=== PATIENT | female | born 1970 | race Caucasian/White ===

== ENCOUNTER 2018-03-13 08:55 | Emergency (ER) | payer OTHER ==
--- NOTE | 2018-03-13 09:35 | EDPHY ---
General Time Seen by Provider: 03/13/18 09:33 Narrative: CHIEF COMPLAINT: Swelling and leg, sent here to rule out blood clot HISTORY OF PRESENT ILLNESS: Patient presents with complaints of left leg swelling and possible DVT. She reports an injury 1 month ago work. She is since been doing physical therapy. Today physical therapy, the therapist was concerned as she has had some swelling since last night. This involves the left leg from below the knee. There is some mild pain in the area from the knee down as well. There is also mild pain in the left inguinal fold. She was also briefly evaluated by the worker's compensation physician, who was concern for possible DVT. They sent her here for this. She has no chest pain. She does have mild shortness of breath. No fever chills. No redness or warmth. No recent travel or trauma. No previous incidence of venous thrombolic event, peripheral edema, peripheral vascular disease. She does have mild aortic regurgitation. No other associated complaints or modifying factors. REVIEW OF SYSTEMS: Ten systems reviewed and are negative unless otherwise noted in the HPI PCP: Dr. Worrell SPECIALISTS: Currently worker's compensation PAST MEDICAL HISTORY: Aortic regurgitation, fibromyalgia, rheumatoid arthritis PAST SURGICAL HISTORY: No recent surgical history SOCIAL HISTORY: Daily smoker. No drug or alcohol use. Lives independently. Works for [employer] FAMILY HISTORY: Noncontributory EXAMINATION General Appearance: Alert, no distress Head: normocephalic, atraumatic Eyes: Pupils equal and round, no conjunctival pallor or injection ENT, Mouth: Mucous membranes moist Neck: Normal inspection, supple, non-tender Respiratory: Lungs are clear to auscultation Cardiovascular: Regular rate and rhythm Gastrointestinal: Abdomen is soft and nontender Back: non-tender, no bony abnormalities Neurological: A&O, nonfocal, normal gait Skin: Warm and dry, no rash Extremities: Nontender, symmetric lower extremity nonpitting pedal edema. Good signs of perfusion without any evidence of DVT by examination. Range of motion is symmetric in the upper lower extremities. Psychiatric: Mood and affect normal DIFFERENTIAL DIAGNOSES: Including but not limited to peripheral vascular disease, DVT, peripheral edema , hypoalbuminemia, congestive heart failure, dependent edema MDM: 9:30 a.m. Reports of lower extremity edema and pain over the past 24 hr. I do not appreciate any significant edema. There is no pitting edema of any kind. There is no evidence of DVT by my examination, but the patient was sent here to rule this out by her physician. Thus I have ordered the ultrasound. I have also ordered laboratory studies and chest x-ray given mild shortness of breath. She has no chest pain. Vital signs are within normal limits. There is good signs of perfusion and no evidence of venous stasis. 10:24 a.m. Notified by radiologist Dr. Tenzin Vazquez. Extremity ultrasound is negative for DVT. 10:30 a.m. BNP is negative. Chest x-ray is unremarkable with no signs of failure or cardiomegaly. Patient is reassured by the negative DVT study. We discuss consideration of compression stockings and further care with her worker's compensation Clinic for the edema. We also discussed follow-up with primary care physician. We discussed ED precautions for any chest pain, worsening shortness of breath, fever, redness or warmth. She is comfortable this plan and discharged home stable condition, fully ambulatory. SUPERVISION: This patient was independently evaluated without direct involvement of or examination by the attending physician. - Diagnostics Imaging Results: Imaging Impressions Extremity Venous Study 03/13/18 09:32 Impression: No deep venous thrombosis left leg. Findings and recommendations discussed with Emergency Department physician, Severo Ng at 10:24 hour, 03/13/2018. Final report concurs with initial preliminary interpretation. Chest X-Ray 03/13/18 09:33 Impression: Airways disease. No edema or failure. - History Smoking Status: Former smoker - Objective Vital Signs: Initial Vital Signs Temperature (C) 98.6 F 03/13/18 09:07 Heart Rate 72 03/13/18 09:07 Respiratory Rate 16 03/13/18 09:07 Blood Pressure 142/57 H 03/13/18 09:07 O2 Sat (%) 95 03/13/18 09:07 O2 Delivery Mode Room Air Allergies/Adverse Reactions: Penicillins Allergy (Verified 03/13/18 09:06) Home Medications: Medication Instructions Recorded Ibuprofen Unk 03/12/13 Tramadol Unk 03/12/13 Vicodin 5-300 mg Tablet 03/13/18 Laboratory Results: Laboratory Results 03/13/18 09:35 03/13/18 09:35 03/13/18 03/13/18 09:35 09:35 WBC 5.11 10^3/uL 10^3/uL (3.80-9.50) RBC 4.90 10^6/uL 10^6/uL (4.18-5.33) Hgb 14.6 g/dL g/dL (12.6-16.3) Hct 44.6 % % (38.0-47.0) MCV 91.0 fL fL (81.5-99.8) MCH 29.8 pg pg (27.9-34.1) MCHC 32.7 g/dL g/dL (32.4-36.7) RDW 13.6 % % (11.5-15.2) Plt Count 249 10^3/uL 10^3/uL (150-400) MPV 10.1 fL fL (8.7-11.7) Neut % (Auto) 44.4 % % (39.3-74.2) Lymph % (Auto) 41.5 % % (15.0-45.0) [place] % (Auto) 8.2 % % (4.5-13.0) Eos % (Auto) 4.7 % % (0.6-7.6) Baso % (Auto) 0.8 % % (0.3-1.7) Nucleat RBC Rel Count 0.0 % % (0.0-0.2) Absolute Neuts (auto) 2.27 10^3/uL 10^3/uL (1.70-6.50) Absolute Lymphs (auto) 2.12 10^3/uL 10^3/uL (1.00-3.00) Absolute Monos (auto) 0.42 10^3/uL 10^3/uL (0.30-0.80) Absolute Eos (auto) 0.24 10^3/uL 10^3/uL (0.03-0.40) Absolute Basos (auto) 0.04 10^3/uL 10^3/uL (0.02-0.10) Absolute Nucleated RBC 0.00 10^3/uL 10^3/uL (0-0.01) Immature Gran % 0.4 % % (0.0-1.1) Immature Gran # 0.02 10^3/uL 10^3/uL (0.00-0.10) Sodium 140 mEq/L mEq/L (135-145) Potassium 4.0 mEq/L mEq/L (3.3-5.0) Chloride 109 mEq/L mEq/L (97-110) Carbon Dioxide 22 mEq/l mEq/l (22-31) Anion Gap 9 mEq/L mEq/L (8-16) BUN 11 mg/dL mg/dL (7-23) Creatinine 0.6 mg/dL mg/dL (0.6-1.0) Estimated GFR > 60 Glucose 113 mg/dL H mg/dL (70-100) Calcium 8.9 mg/dL mg/dL (8.5-10.4) NT-Pro-B Natriuret Pep 75 pg/mL pg/mL (0-125) Departure - Departure Disposition: Home, Routine, Self-Care Clinical Impression: Mild peripheral edema Condition: Good Instructions: Leg Edema (ED) Additional Instructions: 1. Contact primary care physician for further care 2. direct care worker's compensation [facility] for continuing care 3. ED precautions for worsening swelling, any chest pain or shortness of breath Referrals: ANNA WORRELL [Primary Care Provider] - As per Instructions Stand Alone Forms: Work Comp Follow Up
[2018-03-13 09:48] LABS: PLATELET COUNT 249 10^3/uL (150-400)
[2018-03-13 10:24] VITALS: BP 121/63
== END 2018-03-13 10:50 | disposition home or self-care (01) ==
DX: R60.0 Localized edema (principal); Z87.891 Personal history of nicotine dependence

== ENCOUNTER 2018-08-11 09:03 | Emergency (ER) | payer OTHER ==
--- NOTE | 2018-08-11 10:03 | EDPHY ---
General - History Smoking Status: Former smoker Time Seen by Provider: 08/11/18 10:01 Narrative: CLINICAL IMPRESSION: Shortness of breath, chest pressure, cardona cyst left popliteal fossa ASSESSMENT/PLAN: Patient is a 48-year-old female who presents to the emergency department complaining of shortness of breath, chest pressure for 3 days and left popliteal fossa swelling and pain. Patient is 2 weeks status post left knee arthroscopy, sent here with concerns of possible DVT. Patient is afebrile and not toxic-appearing, she is in no acute distress on arrival. Physical examination reveals tenderness and fullness to the medial aspect of her left popliteal fossa, mildly firm. No overlying erythema or fluctuance. Her oxygen saturation was 96% on room air, no evidence respiratory distress or hypoxia. An ECG was immediately obtained and revealed a left bundle branch block without evidence of acute ischemia, no ECGs for comparison; reviewed by myself and Dr. Hernández. Troponin was undetectable at 0. It is unclear if the left bundle branch block is new however in light of constant chest pressure for the last 3 days, this is very atypical for ACS; heart score also low. Dimer was positive at 0.6. CBC revealed no evidence of leukocytosis. Metabolic panel with no evidence of metabolic abnormality or MARÍA. In light of recent surgery concern for both DVT and PE. Ultrasound study revealed simple Cardona's cyst located in the left popliteal fossa, no evidence of DVT. CTA chest revealed no evidence of pulmonary embolism or other acute abnormality. Workup today is very reassuring. It is unclear exactly what is causing her intermittent shortness of breath and constant chest pressure. Left lower extremity findings consistent with Cardona cyst. No findings to suggest PE, infectious process such as pneumonia, COPD, asthma, CHF, DVT, ACS, traumatic injury, cellulitis, abscess, necrotizing skin infection or neurovascular compromise. Patient is well established with her PCP and her orthopedic surgeon , she will call to schedule follow-up with both. Strict return precautions were discussed-she will return for worsening shortness of breath, worsening chest pain, development of fever, worsening leg pain, leg swelling, redness around her incisions or for any other concerning symptom. Patient verbalized understanding and she is in agreement with this plan. DIFFERENTIAL DX: Shortness of breath including but not limited to pulmonary infectious process, COPD, asthma, pulmonary embolus and congestive heart failure. ED COURSE: 1000: Discussed with Dr. Hernández. Received with baseline laboratory studies including troponin and dimer as well as chest x-ray and left lower extremity ultrasound 1026: Troponin 0, undetectable 1056: Dimer positive, will proceed with chest CTA. Discussed with Dr. Hernández. CHIEF COMPLAINT: Chest pressure, shortness of breath, tender palpable mass in the left popliteal fossa HPI: Patient is a 48-year-old female with a history of fibromyalgia and recent left knee arthroscopy with meniscus repair presents to the emergency department posterior left knee pain and swelling, shortness of breath and chest pressure. Patient reports several days ago she noticed some fullness in her left popliteal fossa, it appeared slightly raised however improved after she iced. She was seen and evaluated at physical therapy today and sent here for further evaluation and concern for possible blood clot. Patient also endorses 3 days of constant chest pressure with intermittent shortness of breath. Patient has been taking a full-strength baby aspirin, no history of pulmonary embolism or DVT. Patient denies any radiation of her pain, she has no associated diaphoresis. No history of early family heart disease. She denies any dizziness, fever, nausea, vomiting or abdominal pain. She has had no urinary symptoms to include dysuria, hematuria or frequency. Bowel movements have been regular. Postsurgical course has been uncomplicated, last seen by Dr. Leslie Carter last week with reassuring evaluation and recommendation to start increasing activity. She denies any redness around her incisions, no drainage. PMH: Fibromyalgia Pertinent Past Surgical History: Left knee arthroscopic surgery with meniscus repair Family History: Noncontributory Social History: Denies smoking, denies illicit drug use REVIEW OF SYSTEMS: All other systems negative Constitutional: No fever, no chills, appetite change. Eyes: No discharge, vision change ENT: No sore throat, congestion, ear pain. Cardiovascular: Chest pressure, denies palpitations. Respiratory: Intermittent shortness of breath, no cough. Gastrointestinal: No abdominal pain, no vomiting, diarrhea. Genitourinary: No hematuria, dysuria, flank pain, pelvic pain Musculoskeletal: Left knee pain. No back pain, joint swelling, joint pain, myalgias. Skin: No rashes, color change. Neurological: No headache, dizziness, weakness. PHYSICAL EXAM: General Appearance: Well-appearing, no acute distress. HENT: Normocephalic, atraumatic. Bilateral external ears are normal. Bilateral tympanic membranes are normal with pearly scherer reflex. Nares are clear, mucosa is pink. Oropharynx is clear, uvula is midline. There is no tonsillar enlargement or exudate. The dentition is normal.] Eyes: PERRLA, no acute vision change, nystagmus, swelling, discharge, pain or photosensitivity. Conjunctiva pink, no pallor or injection Neck: Supple, nontender, no lymphadenopathy, no midline pain, FROM, no meningismus. Respiratory: There are no retractions, lungs are clear to auscultation. Cardiac: Regular rate and rhythm, no murmurs or gallops. Gastrointestinal: Abdomen is soft, nontender, bowel sounds normal, no masses/ hernia, no rigidity, guarding or focal peritoneal findings. Neurological: Alert and oriented x 3, CN 2-12 grossly intact, normal gait no ataxia, DTR's intact, normal sensation and strength Skin: Warm, dry, no rashes, no nodules on palpation. Psychiatric: Patient is oriented X 3, there is no agitation. Upper Extremities: Intact distal pulses, Full range of motion intact, no tenderness, no ecchymosis or edema Lower Extremities: Left knee with generalized swelling, multiple arthroscopic incisions present that are healing well, no surrounding erythema or drainage. There is no induration. The left popliteal fossa has a semi firm 4 cm circular mass noted at the medial aspect. There is no overlying erythema or calor. Intact distal pulses, No edema, No tenderness, No cyanosis, full range of motion intact, No calf tenderness bilaterally. MEDICAL DECISION MAKING: Patient was seen independently. Secondary supervising physician at time of evaluation was Dr. Hernández, case was discussed with him however he did not evaluate this patient. Diagnosis: Shortness of breath, chest pressure, Cardona cyst left popliteal fossa. New, requires workup Summary: See Assessment and Plan for summary of ED visit Clinical lab tests: ordered / reviewed. Independent visualization of images, tracing, or specimens: Yes. Decision to obtain medical records or history from someone other than the patient: Yes, Review / Summarize previous medical records: Yes Discussed patient with another provider: Yes, Dr. Hernández. Patient Progress: Stable, discharge. (JoshuaEmily) Medical Decision Making: I did not see this patient while she was in the emergency department. However her care was discussed with the PA while the patient was in the department. I agree with treatment plan and management (Inocente Hernández) - Diagnostics EKG Interpretation: EKG interpreted by me shows normal sinus rhythm normal interval. Left axis deviation. Left bundle branch block present. No significant ST elevation or depression. No arrhythmia. The rate is 67. No previous EKGs for comparison (Inocente Hernández) - Objective Vital Signs: Initial Vital Signs Temperature (C) 36.8 C 08/11/18 09:06 Heart Rate 79 08/11/18 09:06 Respiratory Rate 16 08/11/18 09:06 Blood Pressure 126/70 H 08/11/18 09:06 O2 Sat (%) 95 08/11/18 09:06 O2 Delivery Mode Room Air Allergies/Adverse Reactions: Penicillins Allergy (Verified 08/11/18 09:04) Home Medications: Medication Instructions Recorded Aspirin 81mg (*) 08/11/18 Oxycodone HCl 08/11/18 Laboratory Results: Laboratory Results 08/11/18 10:15 08/11/18 10:15 Point of Care Test Results: Chemistry 08/11/18 10:18 POC Troponin I 0.00 ng/mL ng/mL (0.00-0.08) Departure - Departure Disposition: Home, Routine, Self-Care Clinical Impression: Shortness of breath, Chest pressure, Cardona's cyst of knee Condition: Good Instructions: Bakers Cyst (ED), Shortness of Breath (ED) Additional Instructions: DISCHARGE INSTRUCTIONS FROM YOUR DOCTOR Thank you for visiting our emergency department today. Please keep in mind that discharge from the emergency department does not mean that there is nothing wrong - it simply means that we have not identified an emergency condition that requires further evaluation or treatment in the hospital. If you have been referred to a specialist, please call as soon as possible ( today or tomorrow) to schedule your follow up appointment at the appropriate time. You have been provided a referral for Cardiology, please call to schedule an appointment for follow-up. The exact cause of your chest pressure was not identified. The tests we have performed are essentially normal. Serious causes of chest pain are still possible, therefore. If the pain persists tomorrow, you should return for a recheck. Rest, eat healthy well balanced low carbohydrate diet and pursue exercise/ activity as allowed by your primary care provider or source water protection specialist. Try and reduce stress as much as possible. Continue your regular medications as prescribed. Schedule a follow-up appointment with your primary care provider in the next 1- 2 days for close re-evaluation. Return for any symptom concern, particularly chest pain, shortness of breath, rapid or irregular heartbeat, unusual fatigue, cough, coughing up blood or discolored sputum, swelling, dizziness, weakness, fainting, nausea, vomiting, abdominal pain, fever, chills, headache, or for any other new, worsening, or worrisome symptoms. People present with illnesses and injuries in different ways, and it is always possible that we have missed something. You may always return for re-evaluation if symptoms worsen or if they are not improving or if you develop new/different symptoms. Again, thank you for choosing our emergency department. We hope that you feel better. Referrals: ANNA WORRELL [Primary Care Provider] - 1-2 days without fail (Please call to be seen by her primary care provider) Leeanna Simons MD [Medical Doctor] - 2-3 days, call for appt.
[2018-08-11 10:24] LABS: PLATELET COUNT 252 10^3/uL (150-400)
[2018-08-11] MEDS ORDERED: IOHEXOL 350mgI/ML (OMNIPAQUE) 150 ML BTL IV ONE (10:59)
--- NOTE | 2018-08-11 11:36 | CPEKG ---
Test Reason : OPEN Blood Pressure : / mmHG Vent. Rate : 067 BPM Atrial Rate : 068 BPM P-R Int : 195 ms QRS Dur : 139 ms QT Int : 496 ms P-R-T Axes : -08 -05 019 degrees QTc Int : 524 ms Sinus rhythm Left bundle branch block Confirmed by Flavia Hernández ([id number]) on 08/11/2018 11:36:25 AM Referred By: FLAVIA HERNÁNDEZ Confirmed By:Flavia Hernández
[2018-08-11 12:26] VITALS: BP 132/69
== END 2018-08-11 12:23 | disposition home or self-care (01) ==
DX: R06.02 Shortness of breath (principal); R07.9 Chest pain, unspecified; M71.22 Synovial cyst of popliteal space [Baker], left knee
CPT/HCPCS: 84484-ER; Q9967